=== PATIENT | female | born 1980 | race Caucasian/White ===

== ENCOUNTER 2019-07-28 14:14 | Inpatient (IN) | payer OTHER ==
[~2019-07-28] VITALS: Ht 160 cm; Wt 75.0 kg
[2019-07-28] MEDS ORDERED: METH10SO PO (14:32)
[2019-07-28 14:40] LABS: BASOPHILS % (AUTO) 0.4 % (0.0-2.0); EOSINOPHILS % (AUTO) 0.1 % (1.0-6.0); HEMATOCRIT 38.7 % (36-46); HEMOGLOBIN 12.7 g/dL (12.0-16.0); LYMPHOCYTES # (AUTO) 1.2 K/uL (1.0-4.8); LYMPHOCYTES % (AUTO) 14.5 % (22.0-44.0); MEAN CORPUSCULAR HEMOGLOBIN 27.3 pg (26.0-34.0); MEAN CORPUSCULAR HGB CONC 32.7 G/dL (31.0-37.0); MEAN CORPUSCULAR VOLUME 84 fL (80-100); MONOCYTES # (AUTO) 0.3 K/uL (0.1-1.0); NEUTROPHILS # (AUTO) 6.7 K/uL (1.8-7.7); PLATELET COUNT (AUTO) 364 K/uL (150-450); RED BLOOD CELL COUNT(AUTO) 4.63 MIL/uL (4.00-5.20); RED CELL DISTRIBUTION WIDTH 13.9 % (11.5-14.5)
[2019-07-28 14:48] LABS: ANION GAP 7 mmol/L (8-16); CALCIUM, TOTAL 8.8 mg/dL (8.8-10.5); CARBON DIOXIDE 27 mmol/L (22-29); CHLORIDE 102 mmol/L (98-107); CREATININE 0.99 mg/dL (0.60-1.30); GLOMERULAR FILTR. RATE CALC > 60 mL/min (>60); GLUCOSE,RANDOM 83 mg/dL (70-110); POTASSIUM 3.9 mmol/L (3.5-5.1); SODIUM SERUM 136 mmol/L (136-145); UREA NITROGEN, BLOOD 8 mg/dL (7-18)
[2019-07-28 15:00] LABS: ALANINE AMINOTRANSFERASE 21 U/L (12-78); ALBUMIN 3.2 g/dL (3.4-5.0); ALKALINE PHOSPHATASE 83 U/L (46-116); ASPARTATE AMINOTRANSFERASE 25 U/L (15-37); BILIRUBIN,TOTAL 0.2 mg/dL (0.1-1.0); HCG,QUANTITATIVE < 1 mIU/mL (0-6); TOTAL PROTEIN, SERUM 7.9 g/dL (6.4-8.2)
[2019-07-28] MEDS ORDERED: ONDANSETRON HCL 4 MG/2 ML VIAL IVP PRN (15:15)
[2019-07-28] MEDS ORDERED: MAGNESIUM HYDROXIDE SUSPENSION 30 ML UDCUP PO PRN (15:15)
[2019-07-28] MEDS: SODIUM CHLORIDE 0.9% 1,000 ML IV ONE ×2 (15:15→20:08)
[2019-07-28 15:32] VITALS: BP 106/59
[2019-07-28] MEDS ORDERED: INFLUENZA VIRUS VACCINE QVS 2019-20 (3YR+)/PF 60 MCG/0.5 ML SYRINGE IM ONE (16:00)
[2019-07-28] MEDS: DOCUSATE SODIUM 100 MG CAPSULE PO SCH (20:07)
[2019-07-28 20:14] VITALS: BP 102/63
[2019-07-29 00:10] VITALS: BP 116/58
[2019-07-29] MEDS: LORazepam 2 MG/ML VIAL IVP PRN ×4 (00:14→20:08)
[2019-07-29 05:46] VITALS: BP 106/60
[2019-07-29 08:06] VITALS: BP 120/70
[2019-07-29] MEDS: FAMOTIDINE 20 MG TABLET PO SCH (08:27)
[2019-07-29] MEDS: DOCUSATE SODIUM 100 MG CAPSULE PO SCH ×2 (08:39→20:12)
[2019-07-29] MEDS: ACETAMINOPHEN 325 MG TABLET PO PRN (15:18)
[2019-07-29 15:50] VITALS: BP 127/76
[2019-07-29 21:00] VITALS: BP 120/71
[2019-07-29 23:40] VITALS: BP 107/76
[2019-07-30 05:06] VITALS: BP 108/65
[2019-07-30] MEDS: ACETAMINOPHEN 325 MG TABLET PO PRN ×3 (06:23→20:16)
[2019-07-30] MEDS: LORazepam 2 MG/ML VIAL IVP PRN ×4 (06:27→21:39)
[2019-07-30 07:15] VITALS: BP 108/64
[2019-07-30] MEDS: DOCUSATE SODIUM 100 MG CAPSULE PO SCH ×2 (08:51→20:39)
[2019-07-30] MEDS: FAMOTIDINE 20 MG TABLET PO SCH (08:51)
[2019-07-30 11:15] VITALS: BP 103/62
[2019-07-30] MEDS ORDERED: METOCLOPRAMIDE HCL 5 MG/ML 2 ML VIAL IVP PRN (12:15)
[2019-07-30] MEDS ORDERED: LOPERAMIDE HCL 2 MG CAPSULE PO PRN (12:15)
[2019-07-30] MEDS: IBUPROFEN 400 MG TABLET PO PRN (13:20)
[2019-07-30 14:08] LABS: AMPHET/METH SCREEN,URINE POSITIVE (NEGATIVE); BARBITURATE SCREEN, URINE NEGATIVE (NEGATIVE); BENZODIAZEPINES SCREEN,URINE POSITIVE (NEGATIVE); CANNABINOID SCREEN,URINE NEGATIVE (NEGATIVE); COCAINE SCREEN,URINE NEGATIVE (NEGATIVE); METHADONE SCREEN, URINE POSITIVE (NEGATIVE); OPIATE SCREEN,URINE POSITIVE (NEGATIVE)
[2019-07-30 14:11] LABS: PHENCYCLIDINE SCREEN,URINE NEGATIVE (NEGATIVE)
[2019-07-30 15:10] VITALS: BP 119/75
[2019-07-30 19:32] VITALS: BP 114/68
[2019-07-30] MEDS: TEMAZEPAM 15 MG CAPSULE PO SCH (20:39)
[2019-07-31 00:18] VITALS: BP 104/55
[2019-07-31 05:25] VITALS: BP 106/69
[2019-07-31] MEDS: LORazepam 2 MG/ML VIAL IVP PRN ×4 (05:44→17:52)
[2019-07-31 08:03] VITALS: BP 108/64
[2019-07-31] MEDS: DOCUSATE SODIUM 100 MG CAPSULE PO SCH ×2 (08:10→20:32)
[2019-07-31] MEDS: FAMOTIDINE 20 MG TABLET PO SCH (08:10)
[2019-07-31] MEDS: IBUPROFEN 400 MG TABLET PO PRN ×2 (08:15→20:32)
[2019-07-31] MEDS ORDERED: SODIUM CHLORIDE 0.9% 1,000 ML IV ONE (12:45)
[2019-07-31] MEDS: FOLIC ACID 1 MG TABLET PO SCH (13:49)
[2019-07-31] MEDS: ACETAMINOPHEN 325 MG TABLET PO PRN (13:49)
[2019-07-31] MEDS: THIAMINE HCL 100 MG TABLET PO SCH (13:49)
[2019-07-31] MEDS: ChlordiazePOXIDE HCL 25 MG CAPSULE PO SCH (15:59)
[2019-07-31 16:05] VITALS: BP 129/67
[2019-07-31 19:43] VITALS: BP 108/68
[2019-07-31] MEDS: TEMAZEPAM 15 MG CAPSULE PO SCH (20:32)
[2019-07-31 23:30] VITALS: BP 112/62
[2019-08-01] MEDS: DICYCLOMINE HCL 10 MG CAPSULE PO PRN ×2 (00:16→23:24)
[2019-08-01] MEDS: ChlordiazePOXIDE HCL 25 MG CAPSULE PO SCH ×4 (00:16→23:24)
[2019-08-01] MEDS: LORazepam 2 MG/ML VIAL IVP PRN ×5 (00:17→20:41)
[2019-08-01] MEDS: ACETAMINOPHEN 325 MG TABLET PO PRN (04:40)
[2019-08-01] MEDS: FAMOTIDINE 20 MG TABLET PO SCH (07:52)
[2019-08-01] MEDS: DOCUSATE SODIUM 100 MG CAPSULE PO SCH ×2 (07:52→20:41)
[2019-08-01] MEDS: FOLIC ACID 1 MG TABLET PO SCH (07:52)
[2019-08-01] MEDS: THIAMINE HCL 100 MG TABLET PO SCH (07:52)
[2019-08-01 08:10] VITALS: BP 102/62
[2019-08-01] MEDS ORDERED: CloNIDine HCL 0.1 MG TABLET PO ONE (10:45)
[2019-08-01] MEDS ORDERED: LORazepam 2 MG/ML VIAL IVP ONE (10:45)
[2019-08-01 10:51] VITALS: BP 119/65
[2019-08-01] MEDS: NICOTINE 7 MG/24 HOUR PATCH TD SCH (15:21)
[2019-08-01 15:34] VITALS: BP 106/66
[2019-08-01 20:20] VITALS: BP 101/58
[2019-08-01] MEDS: TEMAZEPAM 15 MG CAPSULE PO SCH (20:41)
[2019-08-01] MEDS: IBUPROFEN 400 MG TABLET PO PRN (21:37)
[2019-08-02] MEDS: LORazepam 2 MG/ML VIAL IVP PRN ×2 (01:38→09:51)
[2019-08-02 05:55] VITALS: BP 105/58
[2019-08-02 08:28] VITALS: BP 101/56
[2019-08-02] MEDS: FAMOTIDINE 20 MG TABLET PO SCH (08:28)
[2019-08-02] MEDS: FOLIC ACID 1 MG TABLET PO SCH (08:28)
[2019-08-02] MEDS: ChlordiazePOXIDE HCL 25 MG CAPSULE PO SCH (08:28)
[2019-08-02] MEDS: DOCUSATE SODIUM 100 MG CAPSULE PO SCH ×2 (08:28→20:40)
[2019-08-02] MEDS: NICOTINE 7 MG/24 HOUR PATCH TD SCH (08:28)
[2019-08-02] MEDS: THIAMINE HCL 100 MG TABLET PO SCH (09:50)
[2019-08-02] MEDS ORDERED: IBUPROFEN 400 MG TABLET PO PRN (14:15)
[2019-08-02 15:41] VITALS: BP_SYST 109; BP_SYST 157; BP_DIAS 59; BP_DIAS 74
[2019-08-02 20:06] VITALS: BP 111/61
[2019-08-02] MEDS: TEMAZEPAM 15 MG CAPSULE PO SCH (20:38)
[2019-08-02] MEDS: DICYCLOMINE HCL 10 MG CAPSULE PO PRN (22:26)
[2019-08-02] MEDS ORDERED: LORazepam 1 MG TABLET PO ONE (22:30)
[2019-08-03] MEDS ORDERED: DiphenhydrAMINE HCL 25 MG CAPSULE PO ONE (02:00)
[2019-08-03] MEDS: DICYCLOMINE HCL 10 MG CAPSULE PO PRN ×2 (05:06→13:56)
[2019-08-03] MEDS: FAMOTIDINE 20 MG TABLET PO SCH (08:24)
[2019-08-03] MEDS: DOCUSATE SODIUM 100 MG CAPSULE PO SCH (08:24)
[2019-08-03] MEDS: THIAMINE HCL 100 MG TABLET PO SCH (08:24)
[2019-08-03] MEDS: FOLIC ACID 1 MG TABLET PO SCH (08:24)
[2019-08-03] MEDS: NICOTINE 7 MG/24 HOUR PATCH TD SCH (08:25)
[2019-08-03 08:42] VITALS: BP 108/58
[2019-08-03] MEDS ORDERED: HYD25 PO (12:56)
[2019-08-03] MEDS ORDERED: IBUP-1506 PO (12:58)
== END 2019-08-03 16:12 | DRG 897 ==
LOC: EMS 14:18 → 6S 14:59
PROVIDERS: ADMIT Internal Medicine; ATTEND Internal Medicine
DX: F11.23 Opioid dependence with withdrawal (principal); F17.210 Nicotine dependence, cigarettes, uncomplicated; F41.9 Anxiety disorder, unspecified; Z79.899 Other long term (current) drug therapy
CPT/HCPCS: 80307; G0480; J2060; J2405; J7030